=== PATIENT | male | born 1960 | race Caucasian/White ===

== ENCOUNTER 2016-11-27 20:23 | Emergency (ER) | payer MEDICAID, OTHER ==
[~2016-11-27] VITALS: Ht 185.4 cm; Wt 111.1 kg
[2016-11-27 20:31] VITALS: BP_SYST 160
[2016-11-27 21:07] VITALS: BP_SYST 155
== END 2016-11-27 21:06 | disposition home or self-care (01) ==
LOC: SED 20:23
DX: S90.31XA Contusion of right foot, initial encounter (principal); J45.909 Unspecified asthma, uncomplicated; Z88.8 Allergy status to other drugs, medicaments and biological substances; Z88.1 Allergy status to other antibiotic agents; Z91.09 Other allergy status, other than to drugs and biological substances; Z88.5 Allergy status to narcotic agent; W20.8XXA Other cause of strike by thrown, projected or falling object, initial encounter; Y93.89 Activity, other specified; Y99.8 Other external cause status; Y92.89 Other specified places as the place of occurrence of the external cause
CPT/HCPCS: 99284

== ENCOUNTER 2017-01-30 07:32 | Emergency (ER) | payer MEDICAID, OTHER ==
[~2017-01-30] VITALS: Ht 185.4 cm; Wt 113.4 kg
[2017-01-30 07:32] VITALS: BP_SYST 156
--- NOTE | 2017-01-30 07:32 | NUR ---
Placed in room 08. Placed on gunite mixer, blood pressure machine and pulse oximeter. To gown for exam. Side rails up. Triaged at bedside Report given to DARLENE Alejo.
--- NOTE | 2017-01-30 08:02 | NUR ---
DARRICK BUTLER at bedside for eval.
[2017-01-30] MEDS ORDERED: HYDROmorphone 1 MG INJ. 1 MG/ML AMPUL IVP ONE ×2 (08:15→09:30)
[2017-01-30 08:18] LABS: CALCIUM 9.7 mg/dL (8.4-11.0); CREATININE 1.06 mg/dL (0.55-1.30); POTASSIUM 4.1 mmol/L (3.5-5.1)
[2017-01-30 08:19] LABS: HEMATOCRIT 44.8 % (36-54); HEMOGLOBIN 14.7 g/dL (14.0-18.0); INR 0.9 (0.80-1.20); MEAN CORPUSCULAR HEMOGLOBIN 31 pg (27-31); MEAN CORPUSCULAR HGB CONC 33 % (32-36); MEAN CORPUSCULAR VOLUME 94 fL (79.0-98.0); PLATELET COUNT (AUTO) 236 K/uL (130-430); PROTHROMBIN TIME 9.9 SECS (9.5-12.5); RED BLOOD CELL COUNT(AUTO) 4.75 MIL/uL (4.2-6.2); RED CELL DISTRIBUTION WIDTH 12.5 % (9.0-15.0); WHITE BLOOD COUNT (AUTO) 13.9 K/uL (4.8-10.8)
--- NOTE | 2017-01-30 08:20 | NUR ---
Right chest Mediport accessed with a carrion needle under sterile conditions. Sterile tegaderm applied. Unable to use biopatch due to skin contact with carrion needle. Good blood return. Flushes easily. Pt medicated with dilaudid 1 mg IVP for c/o chest pain 7/10 non radiating. Pt looks comfortable resp phillips and playing on his cell phone.
[2017-01-30 08:23] LABS: ALBUMIN 3.6 g/dL (3.4-4.8); TOTAL BILIRUBIN 0.4 mg/dL (0.0-1.0); TOTAL PROTEIN, SERUM 6.7 g/dL (6.4-8.3)
[2017-01-30 08:59] LABS: BASOPHILS % (MANUAL) 0 % (0-2); EOSINOPHILS % (MANUAL) 2 % (0-7); LYMPHOCYTES % (MANUAL) 14 % (20-46); MONOCYTES % (MANUAL) 9 % (0-11)
--- NOTE | 2017-01-30 09:40 | NUR ---
Medicated a second time with dilaudid for chest pain 03/26. No radiation. Continue to play on cell phone. ST on monitor. Labs discussed with pt by DARRICK BUTLER.
[2017-01-30 10:20] VITALS: BP_SYST 132
--- NOTE | 2017-01-30 10:24 | NUR ---
Patient given written and verbal discharge instructions and verbalizes understanding. ER MD discussed with patient the results and treatment provided. Patient in stable condition. ID arm band removed. IV catheter removed from mediport intact and swabbed with chg swab. no active bleeding. Rx of zpack given. Patient educated on pain management and to follow up with PMD in 4 days. Pain Scale . Opportunity for questions provided and answered.t ambulated to care with .
== END 2017-01-30 10:24 | disposition home or self-care (01) ==
LOC: SED 07:32
DX: J18.9 Pneumonia, unspecified organism (principal); F17.210 Nicotine dependence, cigarettes, uncomplicated; J45.909 Unspecified asthma, uncomplicated; E88.01 Alpha-1-antitrypsin deficiency; Z88.0 Allergy status to penicillin; Z88.6 Allergy status to analgesic agent; Z91.048 Other nonmedicinal substance allergy status; Z85.841 Personal history of malignant neoplasm of brain
CPT/HCPCS: 36415; 71010; 80053; 82550; 83880; 84484; 85007; 85027; 85379; 85610; 85730; 93005; 96374; 96376; 99285; J1170

== ENCOUNTER 2017-04-20 09:15 | Emergency (ER) | payer MEDICAID, OTHER ==
[~2017-04-20] VITALS: Ht 185.4 cm; Wt 108.9 kg
[2017-04-20 09:15] VITALS: BP_SYST 150
[2017-04-20] MEDS ORDERED: ALBUTEROL SULFATE 0.083% 2.5 MG/3 ML VIAL.NEB INH ONE (09:45)
[2017-04-20] MEDS ORDERED: IPRATROPIUM BROM 0.5 MG/2.5 ML VIAL.NEB (ATROVENT) INH ONE (09:45)
[2017-04-20 10:13] LABS: BASOPHILS # (AUTO) 0.4 K/uL (0.0-0.2); BASOPHILS % (AUTO) 2.6 % (0.0-2.0); EOSINOPHILS # (AUTO) 0.2 K/uL (0.0-0.4); EOSINOPHILS % (AUTO) 1.5 % (0.0-4.0); HEMATOCRIT 42.8 % (36-54); HEMOGLOBIN 14.2 g/dL (14.0-18.0); LYMPHOCYTES # (AUTO) 3.5 K/uL (1.0-5.5); LYMPHOCYTES % (AUTO) 24.4 % (20.5-51.5); MEAN CORPUSCULAR HEMOGLOBIN 31 pg (27-31); MEAN CORPUSCULAR HGB CONC 33 % (32-36); MEAN CORPUSCULAR VOLUME 93 fL (79.0-98.0); MONOCYTES # (AUTO) 1.1 K/uL (0.0-1.0); MONOCYTES % (AUTO) 7.6 % (1.7-9.3); NEUTROPHILS # (AUTO) 9.1 K/uL (1.8-7.7); NEUTROPHILS % (AUTO) 63.9 % (40.0-70.0); PLATELET COUNT (AUTO) 264 K/uL (130-430); RED CELL DISTRIBUTION WIDTH 12.8 % (9.0-15.0); WHITE BLOOD COUNT (AUTO) 14.3 K/uL (4.8-10.8)
[2017-04-20] MEDS ORDERED: DIPHENHYDRAMINE INJ 50 MG/ML VIAL IVP ONE (10:15)
[2017-04-20] MEDS ORDERED: methylPREDNISolone SOD SUCC/PF 62.5 MG/ML VIAL IVP ONE (10:15)
[2017-04-20] MEDS ORDERED: fentaNYL CITRATE/PF 100 MCG/2 ML AMP IVP ONE (10:15)
[2017-04-20 10:24] LABS: CALCIUM 8.9 mg/dL (8.4-11.0); CREATININE 0.91 mg/dL (0.55-1.30); POTASSIUM 3.9 mmol/L (3.5-5.1)
[2017-04-20 10:30] LABS: INR 0.9 (0.80-1.20); PROTHROMBIN TIME 10.1 SECS (9.5-12.5); TOTAL BILIRUBIN 0.4 mg/dL (0.0-1.0)
[2017-04-20] MEDS ORDERED: GLUXR500 PO (11:01)
[2017-04-20] MEDS ORDERED: LIP40 PO (11:01)
[2017-04-20] MEDS ORDERED: GABA-531 PO (11:01)
[2017-04-20] MEDS ORDERED: ENAL20TA PO (11:01)
[2017-04-20] MEDS ORDERED: ENAL10TA PO (11:01)
[2017-04-20] MEDS ORDERED: TAMS-11 PO (11:01)
[2017-04-20] MEDS ORDERED: FINA5TAB3 PO (11:08)
[2017-04-20] MEDS ORDERED: VARE1TAB21 PO (11:08)
[2017-04-20] MEDS ORDERED: RIVA20TA PO (11:08)
[2017-04-20] MEDS ORDERED: GLIP-172 PO (11:08)
[2017-04-20] MEDS ORDERED: BEN50 PO (11:08)
[2017-04-20] MEDS ORDERED: ACET-1010 PO (11:08)
[2017-04-20] MEDS ORDERED: HYDR-4100 PO (11:08)
[2017-04-20] MEDS ORDERED: SAXA2.5T PO (11:08)
[2017-04-20] MEDS ORDERED: IOHEXOL 350 mgI/mL, 150 ML INFUS..BTL IV ONE (11:14)
[2017-04-20 15:19] VITALS: BP_SYST 148
== END 2017-04-20 12:15 | disposition left against medical advice (07) ==
LOC: SED 09:15
DX: R06.02 Shortness of breath (principal); Z86.718 Personal history of other venous thrombosis and embolism
CPT/HCPCS: 36415; 71010; 71275; 80053; 82550; 83880; 84484; 85025; 85379; 85610; 85730; 96374; 96375; 99285; J1200; J2930; J3010; Q9967